=== PATIENT | male | born 1960 | race Caucasian/White ===

== ENCOUNTER 2016-11-12 07:31 | Day surgery (SDC) ==
[2016-11-12] MEDS ORDERED: [UNRECOGNIZED DRUG - OTHER] IV ONE (09:00)
[2016-11-12] MEDS ORDERED: D5W IV ONE (09:00)
[2016-11-12] MEDS ORDERED: D5W 50 ML IV ONE (10:00)
[2016-11-12 12:50] VITALS: BP 165/81
== END 2016-11-12 12:40 | disposition home or self-care (01) ==
LOC: INF 07:31
PROVIDERS: ATTEND Surgery
DX: T81.4XXA Infection following a procedure, initial encounter (principal); B99.9 Unspecified infectious disease
CPT/HCPCS: 96365; 96366; J2407; J7060; J7070